=== PATIENT | male | born 1980 | race Caucasian/White ===

== ENCOUNTER 2016-08-31 10:40 | Emergency (ER) | payer OTHER ==
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
[2016-08-31] MEDS ORDERED: NO MEDICATIONS (10:44)
== END 2016-08-31 12:05 | disposition home or self-care (01) ==
LOC: SED 10:40
DX: S93.601A Unspecified sprain of right foot, initial encounter (principal); S83.91XA Sprain of unspecified site of right knee, initial encounter; S13.4XXA Sprain of ligaments of cervical spine, initial encounter; S33.5XXA Sprain of ligaments of lumbar spine, initial encounter; V49.40XA Driver injured in collision with unspecified motor vehicles in traffic accident, initial encounter; Y92.410 Unspecified street and highway as the place of occurrence of the external cause
CPT/HCPCS: 29530; 72040; 72100; 73562; 73630; 99284